=== PATIENT | male | born 1990 | race Hispanic/Latino ===

== ENCOUNTER 2017-08-19 15:07 | Outpatient (CLI) | payer BC ==
--- OUTSIDE RECORDS SUMMARY | 2017-08-19 16:46 | XMS | Continuity of Care Document ---
:[address] [facility] [place], [place] Care Team Providers Name Role Phone JIM TALAVERA Primary Care Physician Unavailable Insurance Providers Payer Name Policy Number Subscriber Name Relationship [facility] [id number] MICHELLE CARDOSO SELF/SAME PATIENT Chief Complaint and Reason for Visit Reason for Visit POSSIBLE BROKEN SHOULDER Problems No problem information available. Medications Current Home Medications Medication Dose Units Route Directions Days/Qty Instructions Start Date Ketorolac 10 MG PO EVERY SIX HOURS 30 03/15/16 Tromethamine NEEDED PRN (KETOROLAC 10 MG PAIN TAB) 10 MG TAB Social History Problem Response Recorded Date Recreational drugs? N 03/15/16 Alcohol? Y 03/15/16 Query Response Start Date Stop Date Smoking Status: Never Smoker Hospital Discharge Instructions No hospital discharge instructions. Plan of Care Discharge Date 03/16/16 Disposition HOME/SELF CARE Condition at Discharge STABLE Instructions/Education Provided DI for AC Joint Separation AC Joint Separation Forms Provided Discharge Form Prescriptions See Medications Section Referrals JIM TALAVERA - Additional Instructions/Education KEEP SLING ON UNTIL YOU FEEL BETTER. YOU MAY TAKE IT OFF FOR SHOWERS AND IF IT DOES NOT HURT YOU MAY USE YOUR RIGHT ARM. TAKE MEDICATION PRESCRIBED FOR PAIN. SEE ORTHO NEXT WEEK. Functional Status No functional status results. Allergies, Adverse Reactions, Alerts No known allergies. Immunizations No Known History of Immunizations. Vital Signs Vital Reading Collection Date/Time Result Blood Pressure 03/16/16 0:05am 166/65 Blood Pressure Source 03/15/16 9:37pm Auto Cuff Patient Temperature 03/16/16 0:05am 98.1 Temperature Source 03/15/16 9:37pm Oral Respiratory Rate 03/15/16 11:36pm 19 Pulse Rate 03/16/16 0:05am 99 Pulse Location 03/15/16 9:37pm Monitor Bedside Pulse Oximetry 03/16/16 0:05am 97 Results No known relevant diagnostic tests, laboratory data and/or discharge summary. Procedures No Known History of Procedures. Encounters Encounter Location Arrival/Admit Date Discharge/Depart Date Attending Provider Departed [facility] 03/15/16 9:07pm 03/16/16 0:05am Traci GODINEZ [facility] Encounter Diagnosis Separation of right acromioclavicular joint, type 3
--- NOTE | 2017-08-19 18:29 | ULT ---
EXAM: RENAL ULTRASOUND: 08/19/17 HISTORY: Hematuria. Dysuria. Recurrent urinary tract infection. COMPARISON: None. TECHNIQUE: Sagittal and transverse imaging of the kidneys is performed. FINDINGS: RIGHT KIDNEY: Normal cortical echotexture. No hydronephrosis. Right kidney measures 4.8 x 11.5 x 6.1 cm. LEFT KIDNEY: Normal cortical echotexture. Left kidney measures 6.3 x 6.1 x 12.9 cm. Urinary bladder is unremarkable. No mucosal abnormality. Prevoid volume is 101 cubic centimeters. IMPRESSION: No evidence of hydronephrosis. POS: OFF
== END 2017-08-19 15:08 | disposition home or self-care (01) ==
LOC: ULT 15:07
PROVIDERS: ATTEND Internal Medicine
DX: R30.0 Dysuria (principal)
CPT/HCPCS: 76770